=== PATIENT | female | born 1970 ===

== ENCOUNTER 2019-01-12 07:00 | Day surgery (SDC) | payer OTHER ==
[2018-12-20 13:04] VITALS: BMI 31.6
[2019-01-12] MEDS ORDERED: Lactated Ringer's 500 ML IV ONE (07:25)
[2019-01-12] MEDS ORDERED: Phenylephrine 2.5% Opht Soln OD SCH (08:00)
[2019-01-12] MEDS ORDERED: Tobramycin/Dexamethasone OPHT OINT ONE (08:16)
[2019-01-12] MEDS ORDERED: Tetracaine 0.5% Ophth (OR ONLY) ONE (08:16)
[2019-01-12] MEDS ORDERED: Lidocaine 2% w Epi 1:100,000 Inj IJ ONE (08:24)
[2019-01-12] MEDS ORDERED: Lidocaine Hydrochloride 5 ML INJ ONE (08:26)
[2019-01-12] MEDS ORDERED: Propofol 10 mg/ml Inj (20 ML) ONE (08:26)
[2019-01-12] MEDS ORDERED: Midazolam 2 MG/2 ML VIAL ONE (08:26)
[2019-01-12] MEDS ORDERED: Hyaluronidase Human, Recombi 150 U/ML VIAL ONE (08:27)
[2019-01-12] MEDS ORDERED: Lidocaine 2% MPF (5 ml) Inj ONE (08:30)
[2019-01-12] MEDS: Gentamicin 80 mg/2mL Inj. ONE ×2 (08:50→09:00)
[2019-01-12] MEDS: MethylPREDNISolone 40 mg Vial ONE ×2 (08:51→09:01)
[2019-01-12] MEDS ORDERED: WATER FOR INJECTION TOP ONE (09:00)
[2019-01-12] MEDS ORDERED: MITOMYCIN TOP ONE (09:00)
[2019-01-12] MEDS ORDERED: MITOMYCIN IV ONE (09:00)
[2019-01-12] MEDS ORDERED: WATER FOR INJECTION IV ONE (09:00)
[2019-01-12 11:34] VITALS: TEMP 96
[2019-01-12 11:39] VITALS: BP 101/64; PULSE 61; RESP 21; O2SAT 97
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
== END 2019-01-12 09:54 | disposition home or self-care (01) ==
LOC: C.SDS 07:00
PROVIDERS: ATTEND Ophthalmology
DX: H11.051 Peripheral pterygium, progressive, right eye (principal)